=== PATIENT | male | born 1990 | race Caucasian/White ===

== ENCOUNTER → 2016-07-19 | Outpatient (CLI) | payer OTHER ==
--- NOTE | 2016-07-19 18:06 | RADRPT ---
EXAM DATE/TIME: 07/19/2016 16:22 [place] COMPARISON: No previous studies available for comparison. INDICATIONS : Left eblow pain, forearm numbness, possible screw removal at some point. MEDICAL HISTORY : 2 previous left elbow fractures. SURGICAL HISTORY : Left elbow screw 8 years ago. ENCOUNTER: Initial ACUITY: >1 year PAIN SCORE: 10/10 LOCATION: Left elbow. FINDINGS: There is a screw and washer the medial epicondyle, presumably previous fracture fixation. The fractur e appears healed. Alignment is within normal limits. There is chronic appearing cortical irregularity and minimally displaced fragmentation of the lateral epicondyle. Mild osteoarthritis. There is a 4 mm anterior joint body. CONCLUSION: 1. Previous fracture fixation of the medial epicondyle, appears healed. 2. Chronic cortical irregularity of the lateral epicondyle. 3. Mild osteoarthritis. 4. 4 mm joint body. Farrukh Manuel MD on July 19, 2016 at 18:03 Board Certified Radiologist. This report was verified electronically.
== END ==
LOC: HRAD 16:05
PROVIDERS: ATTEND Family Medicine
DX: M25.522 Pain in left elbow (principal); Z98.890 Other specified postprocedural states
CPT/HCPCS: 73080